=== PATIENT | female | born 1995 | race Caucasian/White ===

== ENCOUNTER 2017-04-01 01:03 | Emergency (ER) | payer BC ==
[~2017-04-01] VITALS: Ht 160 cm; Wt 62.1 kg
[2017-04-01 01:10] VITALS: TEMP 36.8; Ht 160 cm; Wt 62.1 kg
[2017-04-01] MEDS ORDERED: METOCLOPRAMIDE HCL INJ 5 MG/ML 2 ML VIAL IV STA (01:21)
[2017-04-01] MEDS ORDERED: SODIUM CHLORIDE 0.9% 1000ML 2,000 ML IV STA (01:21)
[2017-04-01] MEDS ORDERED: DiphenhydrAMINE HCL 50 MG/ML VIAL IV STA (01:21)
[2017-04-01] MEDS ORDERED: MoRPHine SULFATE 4 MG/ML 1 ML CARP\\VIAL IV STA (01:27)
[2017-04-01 01:46] LABS: MEAN CELL VOLUME 98.7 fL (80-100); MEAN CORPUSCULAR HEMOGLOBIN 32.7 pg (25-34); MEAN CORPUSCULAR HGB CONC 33.1 g/dl (32-36); MEAN PLATELET VOLUME 9.1 fL (7.4-10.4); PLATELET COUNT 367 K/uL (130-400); RED BLOOD COUNT 3.95 M/uL (4.2-5.4); WHITE BLOOD COUNT 14.38 K/uL (4.8-10.8)
[2017-04-01 01:49] VITALS: O2SAT 96
[2017-04-01] MEDS ORDERED: FLUO20CA35 PO (01:54)
[2017-04-01 02:06] LABS: ALT/SGPT 38 U/L (12-78); AST/SGOT 26 U/L (15-37); BLOOD UREA NITROGEN 13 mg/dl (7-18); CALCIUM 9.2 mg/dl (8.5-10.1); CARBON DIOXIDE 26 mmol/L (21-32); CHLORIDE 106 mmol/L (98-107); CREATININE 0.88 mg/dl (0.60-1.20); GLUCOSE 146 mg/dl (70-99); MAGNESIUM 1.9 mg/dl (1.8-2.4); POTASSIUM 3.1 mmol/L (3.5-5.1); SODIUM 141 mmol/L (136-145)
[2017-04-01 02:08] LABS: ALKALINE PHOSPHATASE 43 U/L (45-117)
[2017-04-01 02:09] LABS: BASO % 0.3 %; BASO ABS # 0.04 K/uL (0-0.2); COMPLETE YES; EOS % 0.8 %; IG% 0.1 %; LYMPH % 20.4 %; LYMPH ABS # 2.93 K/uL (1.2-3.4); MONO % 6.3 %; NEUT % 72.1 %
[2017-04-01 02:16] LABS: PREG INTERNAL NEGATIVE QC NEG CLEAR BACKGROUND; PREG INTERNAL POSITIVE QC POS CONTROL LINE
[2017-04-01] MEDS ORDERED: POTASSIUM CHLORIDE 10 MEQ TABCR PO STA (03:50)
[2017-04-01 03:55] LABS: URINE APPEARANCE CLEAR (CLEAR); URINE BILIRUBIN NEG (NEG); URINE COLOR YELLOW; URINE NITRITE NEG (NEG); URINE PH >= 9.0 (4.5-7.5); URINE SPECIFIC GRAVITY 1.017 (1.000-1.030); UROBILINOGEN NEG (NEG); ZZUR CULT IF INDIC CLEAN CATCH NO
[2017-04-01 04:00] LABS: MANUAL MICROSCOPIC REQUIRED? NO; REVIEW REQ? NO
--- NOTE | 2017-04-01 04:10 | EMERGENCY ROOM VISIT NOTE ---
History First contact with patient: 01:19 Chief Complaint: VOMITING Stated Complaint: VOMITING FOR HOUR,IN HOSPTIAL LAST 3 WEEKS History of Present Illness The patient is a 22 year old female who presents to the Emergency Room with complaints of sudden onset of left lower superpubic pain with nausea and vomiting for the past few hours. Patient just finished antibiotics for kidney infection. She states she went to the same ER,[place] [facility], these past 3 weekends for kidney infection. She states this feels different. She has finished the antibiotics. She was never admitted despite the triage note. She was asked this a few times. The boyfriend is verified this. Patient discussed pain as severe, 8 out of 10 to the left lower quadrant area. Nothing makes it better or worse. She just finished her menstrual cycle. No history of ovarian cyst. Patient denies fever, chills, cough, congestion, urinary symptoms, back pain, vaginal itching or discharge. Review of Systems See HPI for pertinent positives & negatives. A total of 10 systems reviewed and were otherwise negative. Past Medical/Surgical History Migraine, anxiety Social History Smoking Status: Never Smoker Smokeless Tobacco Use: No Drug Use: none Occupation Status: [employer] student Current/Historical Medications Scheduled Fluoxetine (Prozac), 20 MG PO DAILY Physical Exam Vital Signs Date Time Temp Pulse Resp B/P (MAP) Pulse Ox O2 Delivery O2 Flow Rate FiO2 04/01/17 03:08 75 16 116/76 96 Room Air 04/01/17 01:53 58 04/01/17 01:49 96 Room Air 04/01/17 01:46 71 18 125/80 97 Room Air 04/01/17 01:10 36.8 90 24 92/52 99 Room Air Physical Exam VITALS: Vitals are noted on the nurse's note and reviewed by myself. Vital signs mildly hypotensive GENERAL: Female vomiting who appears in pain, nondiaphoretic, well-developed well-nourished. SKIN: The skin was without rashes, erythema, edema, or bruising. There is no tenting of the skin. Capillary reflex less than 2 seconds. HEAD: Normocephalic atraumatic. EARS: External auditory canals clear, tympanic membranes pearly trinh without erythema or effusion bilaterally. EYES: Pupils equal round and reactive to light and accommodation. Conjunctivae without injection, sclerae without icterus. Extraocular movements intact. NOSE: Patent, turbinates without inflammation or discharge. MOUTH: Mucous membranes mildly dry. Pharynx without erythema or exudate. Uvula midline. Airway patent. Tongue does not deviate. NECK: Supple without nuchal rigidity. No lymphadenopathy. No thyromegaly. Cervical spine is nontender. No JVD. HEART: Regular rate and rhythm without murmurs gallops or rubs. LUNGS: Clear to auscultation bilaterally without wheezes, rales or rhonchi. No dullness to percussion. No retractions or accessory muscle use. ABDOMEN: Positive bowel sounds x 4. Normal tympanic percussion. Soft, tender to palpation left lower suprapubic area, no CVA tenderness, without masses or organomegaly. Butler sign negative. No guarding or rebound tenderness. MUSCULOSKELETAL: No muscle atrophy, erythema, or edema noted. NEURO: Patient was alert and oriented to person place and time. Normal sensation to light and sharp touch. No focal neurological deficits. Medical Decision & Procedures Laboratory Results 04/01/17 01:30 Red Blood Count 3.95, Mean Corpuscular Volume 98.7, Mean Corpuscular Hemoglobin 32.7, Mean Corpuscular Hemoglobin Concent 33.1, Mean Platelet Volume 9.1, Neutrophils (%) (Auto) 72.1, Lymphocytes (%) (Auto) 20.4, Monocytes (%) (Auto) 6.3, Eosinophils (%) (Auto) 0.8, Basophils (%) (Auto) 0.3, Neutrophils # (Auto) 10.38, Lymphocytes # (Auto) 2.93, Monocytes # (Auto) 0.90, Eosinophils # (Auto) 0.11, Basophils # (Auto) 0.04 04/01/17 01:30 Test 04/01/17 01:30 04/01/17 03:30 White Blood Count 14.38 K/uL (4.8-10.8) Red Blood Count 3.95 M/uL (4.2-5.4) Hemoglobin 12.9 g/dL (12.0-16.0) Hematocrit 39.0 % (37-47) Mean Corpuscular Volume 98.7 fL (80-100) Mean Corpuscular Hemoglobin 32.7 pg (25-34) Mean Corpuscular Hemoglobin Concent 33.1 g/dl (32-36) Platelet Count 367 K/uL (130-400) Mean Platelet Volume 9.1 fL (7.4-10.4) Neutrophils (%) (Auto) 72.1 % Lymphocytes (%) (Auto) 20.4 % Monocytes (%) (Auto) 6.3 % Eosinophils (%) (Auto) 0.8 % Basophils (%) (Auto) 0.3 % Neutrophils # (Auto) 10.38 K/uL (1.4-6.5) Lymphocytes # (Auto) 2.93 K/uL (1.2-3.4) Monocytes # (Auto) 0.90 K/uL (0.11-0.59) Eosinophils # (Auto) 0.11 K/uL (0-0.5) Basophils # (Auto) 0.04 K/uL (0-0.2) RDW Standard Deviation 41.1 fL (36.4-46.3) RDW Coefficient of Variation 11.4 % (11.5-14.5) Immature Granulocyte % (Auto) 0.1 % Immature Granulocyte # (Auto) 0.02 K/uL (0.00-0.02) Anion Gap 9.0 mmol/L (3-11) Est Creatinine Clear Calc Drug Dose 82.2 ml/min Estimated GFR () 107.3 Estimated GFR (Non- 92.6 BUN/Creatinine Ratio 15.0 (10-20) Calcium Level 9.2 mg/dl (8.5-10.1) Magnesium Level 1.9 mg/dl (1.8-2.4) Total Bilirubin 0.4 mg/dl (0.2-1) Direct Bilirubin < 0.1 mg/dl (0-0.2) Aspartate Amino Transf (AST/SGOT) 26 U/L (15-37) Alanine Aminotransferase (ALT/SGPT) 38 U/L (12-78) Alkaline Phosphatase 43 U/L (45-117) Total Protein 7.5 gm/dl (6.4-8.2) Albumin 4.2 gm/dl (3.4-5.0) Lipase 86 U/L (73-393) Human Chorionic Gonadotropin, Qual NEG (NEG) Urine Color YELLOW Urine Appearance CLEAR (CLEAR) Urine pH >= 9.0 (4.5-7.5) Urine Specific [place] 1.017 (1.000-1.030) Urine Protein NEG (NEG) Urine Glucose (UA) NEG (NEG) Urine Ketones TRACE (NEG) Urine Occult Blood NEG (NEG) Urine Nitrite NEG (NEG) Urine Bilirubin NEG (NEG) Urine Urobilinogen NEG (NEG) Urine Leukocyte Esterase NEG (NEG) Medications Administered Medications (Trade) Dose Ordered Sig/Татьяна Route Start Time Stop Time Status Last Admin Dose Admin Sodium Chloride 2,000 ml @ 999 mls/hr Q2H1M STAT IV 04/01/17 01:21 04/01/17 03:21 DC 04/01/17 01:34 999 MLS/HR Metoclopramide HCl (Reglan Inj) 10 mg NOW STAT IV 04/01/17 01:21 04/01/17 01:25 DC 04/01/17 01:34 10 MG Diphenhydramine HCl (Benadryl Inj) 25 mg NOW STAT IV 04/01/17 01:21 04/01/17 01:25 DC 04/01/17 01:34 25 MG Morphine Sulfate (MoRPHine SULFATE INJ) 4 mg NOW STAT IV 04/01/17 01:27 04/01/17 01:28 DC 04/01/17 01:38 4 MG ED Course Prior records/ancillary studies reviewed. Triage Nursing notes reviewed. Additional history obtained from boyfriend The patient's history was concerning for abdominal pain with vomiting writhing in pain slightly hypotensive. Differential diagnosis: Differential diagnosis includes salpingitis, , ectopic , incomplete , septic , ruptured ovarian cyst, ovarian torsion, Mittelschmerz, endometritis, dysmenorrhea, appendicitis, PID, and others. Physical examination findings: As above. ER treatment provided: Morphine, Reglan, Benadryl, IV fluids The secretaries was asked to obtain the records from the other facility for review I did obtain these records and patient was treated for pyelonephritis at her first visit and dehydration at her second visit. No CT imaging was ordered. On reassessment the patient felt better. Diagnostics interpreted by me: FAST exam negative for free fluid per my interpretation FAST exam was done as patient was slightly hypotensive and writhing in pain The labs revealed leukocytosis most likely marginalization from vomiting. Hypokalemia and this is replaced orally. Hyperglycemia most likely stress reaction from vomiting Negative hCG Negative urine Imaging studies: Ultrasound pelvis: Normal flow to ovaries and read by radiology and reviewed by myself Exam and history seem consistent with suprapubic abdominal pain that is now resolved with vomiting. Patient's been here for over 3 hours and symptoms have resolved. She is requesting to leave. Using shared decision making process the patient will follow-up today with health services or here in the ER sooner for abdominal pain or further workup if needed. Patient was neurovascularly and neurologically intact. She is well-appearing. She felt much better after being medicated as above. She is advised to follow-up with health services today or here in the ER sooner for abdominal pain, fevers, vomiting, worsening signs or symptoms or as needed. By the evaluation outlined above emergent etiologies such as torsion, , appendicitis, diverticulitis, PUD, biliary pathology, UTI, pancreatitis, obstruction, mesenteric ischemia, aortic pathology, infections, inflammatory bowel disease, renal colic, as well as others were deemed relatively unlikely. The pt informed about the findings as listed above. All questions were answered and pleased with the treatment. Return instructions were outlined and the patient was discharged in stable condition. Outpatient prescription management: Omer Referral: The patient was referred back to their primary care physician/S for follow-up within 24 hours n 1-2 days for a recheck of the current condition. Case reviewed with my attending Medical Decision As above [place] Drug Monitoring Program Search Results: patient reviewed within database, no issues identified Medication Reconcilliation Current Medication List: was personally reviewed by me Impression Primary Impression: Vomiting Additional Impressions: Abdominal pain Hypokalemia Hyperglycemia Departure Information Dispostion Home / Self-Care Condition GOOD Referrals [facility] (PCP) Patient Instructions My [facility] Additional Instructions DO NOT drive, drink alcohol, operate machinery, or perform dangerous activities today. You were given medications in the ER that can affect your ability to safely function or operate a vehicle. Ibuprofen(Motrin, Advil) may be used for fever or pain. Use 600mg every six hours as needed. Take with food. Avoid using more than 2400mg in a 24 hour period. Do not use 2400mg per day for more than three consecutive days without physician direction. Prolonged inappropriate use can lead to stomach upset or ulcers. (AND/OR) Acetaminophen(Tylenol) may be used for fever or pain. Use 1000mg every six hours as needed. Avoid using more than 3000mg in a 24 hour period. Zofran 4mg: Take one every six hours as needed for nausea. Avoid alcohol, operating machinery or dangerous equipment, working on ladders or roofs, DRIVING , or situations where being under the influence may be dangerous. Rest and drink plenty of fluids as tolerated. Slow sips of water or sports drinks are recommended instead of large amounts all at once. Continue current medications. Once your stomach is settled start with a clear liquid diet (jello, soup broth, etc.) and then advance as tolerated. You should avoid full, heavy meals for about 24 hrs from the time your symptoms resolved. Return to the ER immediately for worsening or persistent abdominal pain, vomiting, fevers, chest pains, difficulty breathing, black or bloody stools, worsening of your condition, or as needed. Follow up with your primary physician/health services in 24 hours for a recheck of your current condition. Problem Qualifiers Primary Impression: Vomiting Vomiting type: unspecified Vomiting Intractability: non-intractable Nausea presence: with nausea Qualified Codes: R11.2 - Nausea with vomiting, unspecified Additional Impressions: Abdominal pain Abdominal location: left lower quadrant Qualified Codes: R10.32 - Left lower quadrant pain
[2017-04-01] MEDS ORDERED: ONDANSETRON HOME PACK 4MG OD TAB PO ONE (04:15)
[2017-04-01 04:22] VITALS: BP 100/52; PULSE 81; O2SAT 95
--- NOTE | 2017-04-01 07:06 | DIAGNOSTIC IMAGING REPORT ---
PELVIC COMPLETE NON OB CLINICAL HISTORY: severe LLQ pain, ? Torsion PAIN. NAUSEA. COMPARISON STUDY: None FINDINGS: The uterus measured 5.9 cm. The endometrial stripe measured 3 mm. The right ovary measured 3.2 cm with normal vascular flow. The left ovary measured 3.5 cm with normal vascular flow. There is no ultrasonographic evidence of ovarian torsion. It should be noted that ovarian torsion can be present with normal Doppler ultrasonographic findings. There was no evidence of pathologic free pelvic fluid. IMPRESSION: Normal study The above report was generated using voice recognition software. It may contain grammatical, syntax or spelling errors. Electronically signed by: Moy Orona M.D. 04/01/2017 7:05 AM Dictated Date/Time: 04/01/2017 7:04 AM
== END 2017-04-01 04:31 | disposition home or self-care (01) ==
LOC: C.EDB 01:05 → C.EDA 04:31
DX: R11.10 Vomiting, unspecified (principal); R10.9 Unspecified abdominal pain; E87.6 Hypokalemia; R73.9 Hyperglycemia, unspecified; F41.9 Anxiety disorder, unspecified; Z79.899 Other long term (current) drug therapy

== ENCOUNTER 2018-02-16 18:13 | Emergency (ER) | payer SELFPAY ==
[~2018-02-16] VITALS: Ht 160 cm; Wt 66.8 kg
[~2018-02-16 18:13] MED LIST: FLUO20CA35 PO; FRCT/ PO
[2018-02-16 18:23] VITALS: TEMP 36.4; Ht 160 cm; Wt 66.8 kg
[2018-02-16] MEDS ORDERED: SODIUM CHLORIDE 0.9% 1000ML 1,000 ML IV STA ×2 (19:11→20:18)
[2018-02-16] MEDS ORDERED: ONDANSETRON INJ 2 MG/ML 2 ML VIAL IV STA (19:11)
[2018-02-16] MEDS ORDERED: KETOROLAC TROMETHAMINE 30 MG/ML VIAL IV STA (19:11)
[2018-02-16] MEDS ORDERED: SODIUM CHLORIDE 0.9% 1000ML 1,000 ML IV ONE (19:11)
--- NOTE | 2018-02-16 19:40 | EMERGENCY ROOM VISIT NOTE ---
History Report prepared by Khai: Sonal Castano Under the Supervision of: Dr. Sanya Golden M.D. First contact with patient: 19:03 Chief Complaint: FLU LIKE SX Stated Complaint: NAUSEA, VOMITING, DIARRHEA, CHILLS/SWEATS History of Present Illness The patient is a 23 year old female who presents to the Emergency Room with complaints of constant flu-like symptoms that started this morning. The patient reports that she woke up this morning feeling nauseous and she states that she has been vomiting persistently all day. She also complains of diarrhea, abdominal pain, a slight headache, and achy back pain. She states that she has not had similar symptoms in the past. The patient denies any urinary symptoms or rash. The patient also denies any recent travel, fall, trauma, and injuries, and she does not think she ate anything unusual. The patient reports she has tried taking medication, including Zofran, to alleviate her pain. The patient notes she has a history of a kidney infection and migraines. She also notes she has anxiety and that she has not been able to take her medication today secondary to vomiting. She reports she currently feels very anxious. Source of History: patient Onset: this morning Position: other (generalized) Quality: other (flu-like) Timing: constant Associated Symptoms: + headache, + nausea, + vomiting, + abdominal pain, + back pain (achy), + diarrhea, No urinary symptoms, No rash Note: additional symptoms: anxiety Review of Systems See HPI for pertinent positives & negatives. A total of 10 systems reviewed and were otherwise negative. Past Medical & Surgical Medical Problems: (1) Anxiety Disorder, Unspecified (2) Migraines (3) Pyelonephritis Surgical Problems: (1) No history of previous surgery Old medical records were reviewed. Nurse's notes were reviewed and I agree with. Family History No pertinent family history Social History Smoking Status: Never Smoker Alcohol Use: occasionally Drug Use: none Marital Status: single Occupation Status: employed, [employer] student Current/Historical Medications Scheduled Fluoxetine (Prozac), 20 MG PO DAILY Ondasetron Odt (Zofran Odt), 4 MG SL Q6H Scheduled PRN Acetamin/Butalbital/Caffeine (Fioricet), 1 TAB PO Q4 PRN for Migraine Allergies Coded Allergies: Cefixime (Unverified Allergy, Unknown, , 12/26/17) Penicillins (Verified Allergy, Unknown, very ill, 04/01/17) Sodium Benzoate (Unverified Allergy, Unknown, , 12/26/17) Physical Exam Vital Signs Date Time Temp Pulse Resp B/P (MAP) Pulse Ox O2 Delivery O2 Flow Rate FiO2 02/16/18 22:20 81 18 106/81 99 02/16/18 20:54 77 18 111/89 100 Room Air 02/16/18 18:23 36.4 75 18 104/83 100 Room Air Physical Exam General: Well developed well nourished non ill-appearing female wearing a mask and in no acute distress, breathing comfortably on room air. Normal speech HEENT: Normal cephalic atraumatic. Pupils are equal round and reactive to light. Extraocular movements are intact. Oropharynx is pink with moist mucous membranes. No swelling of the mouth lips or tongue. Neck: Supple with a midline trachea. No meningeal signs or stiffness, no JVD or bruits. No Stridor. Chest: Clear to auscultation bilaterally. No wheezes or rhonchi. No increased work of breathing. Heart: regular rate and rhythm. Abdomen: Soft nondistended without rebound guarding or rigidity. Minimally tender in epigastric area. Extremities: No cyanosis clubbing or edema. No calf tenderness or assymetry Spine/Back. Non tender to palpation. No CVA tenderness Skin: Good turgor without rashes. Neurologic exam: Cranial nerves two through 12 are intact. Motor and sensation are intact and symmetrical throughout. Medical Decision & Procedures Laboratory Results 02/16/18 19:30 Red Blood Count 4.03, Mean Corpuscular Volume 99.5, Mean Corpuscular Hemoglobin 33.0, Mean Corpuscular Hemoglobin Concent 33.2, Mean Platelet Volume 9.7, Neutrophils (%) (Auto) 84.6, Lymphocytes (%) (Auto) 12.1, Monocytes (%) (Auto) 2.9, Eosinophils (%) (Auto) 0.0, Basophils (%) (Auto) 0.3, Neutrophils # (Auto) 6.77, Lymphocytes # (Auto) 0.97, Monocytes # (Auto) 0.23, Eosinophils # (Auto) 0.00, Basophils # (Auto) 0.02 02/16/18 19:30 Test 02/16/18 19:30 02/16/18 20:50 White Blood Count 8.00 K/uL (4.8-10.8) Red Blood Count 4.03 M/uL (4.2-5.4) Hemoglobin 13.3 g/dL (12.0-16.0) Hematocrit 40.1 % (37-47) Mean Corpuscular Volume 99.5 fL (80-100) Mean Corpuscular Hemoglobin 33.0 pg (25-34) Mean Corpuscular Hemoglobin Concent 33.2 g/dl (32-36) Platelet Count 275 K/uL (130-400) Mean Platelet Volume 9.7 fL (7.4-10.4) Neutrophils (%) (Auto) 84.6 % Lymphocytes (%) (Auto) 12.1 % Monocytes (%) (Auto) 2.9 % Eosinophils (%) (Auto) 0.0 % Basophils (%) (Auto) 0.3 % Neutrophils # (Auto) 6.77 K/uL (1.4-6.5) Lymphocytes # (Auto) 0.97 K/uL (1.2-3.4) Monocytes # (Auto) 0.23 K/uL (0.11-0.59) Eosinophils # (Auto) 0.00 K/uL (0-0.5) Basophils # (Auto) 0.02 K/uL (0-0.2) RDW Standard Deviation 44.5 fL (36.4-46.3) RDW Coefficient of Variation 12.2 % (11.5-14.5) Immature Granulocyte % (Auto) 0.1 % Immature Granulocyte # (Auto) 0.01 K/uL (0.00-0.02) Anion Gap 6.0 mmol/L (3-11) Est Creatinine Clear Calc Drug Dose 128.4 ml/min Estimated GFR () 146.3 Estimated GFR (Non- 126.2 BUN/Creatinine Ratio 14.8 (10-20) Calcium Level 9.2 mg/dl (8.5-10.1) Total Bilirubin 0.5 mg/dl (0.2-1) Direct Bilirubin 0.2 mg/dl (0-0.2) Aspartate Amino Transf (AST/SGOT) 21 U/L (15-37) Alanine Aminotransferase (ALT/SGPT) 25 U/L (12-78) Alkaline Phosphatase 49 U/L (45-117) Total Protein 8.2 gm/dl (6.4-8.2) Albumin 4.5 gm/dl (3.4-5.0) Lipase 53 U/L (73-393) Human Chorionic Gonadotropin, Qual NEG (NEG) Urine Color DK YELLOW Urine Appearance CLEAR (CLEAR) Urine pH >= 9.0 (4.5-7.5) Urine Specific [place] 1.027 (1.000-1.030) Urine Protein NEG (NEG) Urine Glucose (UA) NEG (NEG) Urine Ketones 2+ (NEG) Urine Occult Blood NEG (NEG) Urine Nitrite NEG (NEG) Urine Bilirubin NEG (NEG) Urine Urobilinogen NEG (NEG) Urine Leukocyte Esterase NEG (NEG) Urine WBC (Auto) 1-5 /hpf (0-5) Urine RBC (Auto) 5-10 /hpf (0-4) Urine Hyaline Casts (Auto) 1-5 /lpf (0-5) Urine Epithelial Cells (Auto) >30 /lpf (0-5) Urine Bacteria (Auto) NEG (NEG) Laboratory studies as stated above per my review. Medications Administered Medications (Trade) Dose Ordered Sig/Татьяна Route Start Time Stop Time Status Last Admin Dose Admin Sodium Chloride 1,000 ml @ 999 mls/hr Q1H1M STAT IV 02/16/18 19:11 02/16/18 20:11 DC 02/16/18 19:30 999 MLS/HR Sodium Chloride 1,000 ml @ 200 mls/hr Q5H ONCE IV 02/16/18 19:11 02/16/18 22:34 DC 02/16/18 19:30 200 MLS/HR Ondansetron HCl (Zofran Inj) 4 mg NOW STAT IV 02/16/18 19:11 02/16/18 19:12 DC 02/16/18 19:30 4 MG Ketorolac Tromethamine (Toradol Inj) 30 mg NOW STAT IV 02/16/18 19:11 02/16/18 19:12 DC 02/16/18 19:30 30 MG Sodium Chloride 1,000 ml @ 999 mls/hr Q1H1M STAT IV 02/16/18 20:18 02/16/18 21:18 DC 02/16/18 20:18 999 MLS/HR ED Course 1909: Past medical records reviewed. The patient was evaluated in room B8, and a complete history and physical examination were performed. 1910: Ordered Toradol Inj 30 mg IV, Zofran Inj 4 mg IV, Sodium Chloride 1000 ml @ 200 mls/hr IV, Sodium Chloride 1000 ml @ 999 mls/hr IV. 2017: I reevaluated the patient and she is feeling better. I ordered another liter of fluids.Ordered Sodium Chloride 1000 ml @ 999 mls/hr IV. 2203: Upon reevaluation, the patient is stable. I discussed the results and treatment plan with her. She verbalized agreement of the treatment plan. The patient was discharged home. This patient comes in as described above she has had nausea vomiting diarrhea and body aches. There are no known food exposures or sick contacts. She has not been on antibiotics. She tried a Zofran at home that she had from previous illness but threw it up. Denies . IV access established and blood work was obtained. He was hydrated with IV normal saline. She was given Zofran 4 mg IV and Toradol 30 mg IV. Multiple blood testing was obtained. She was reassessed frequently Medical Decision Differentials include, but are not limited to; viral illness, dehydration, gastroenteritis, pancreatitis, , kidney infection, electrolyte and metabolic abnormality This patient comes in as described above she has had nausea vomiting and diarrhea. Her abdomen is benign and she has minimal epigastric tenderness. No lower abdominal tenderness. IV access established hydrated with IV normal saline. She has nothing to suggest infection. She has no significant electrolyte or metabolic abnormality. She has nothing to suggest acute liver, gallbladder, or pancreas disease. She is not . She received 2 L normal saline IV while she was here. She has received IV Zofran as well as IV Toradol is feeling a lot better. She was drinking sips of fluid. Her abdomen does not suggest peritonitis or appendicitis. She is feeling better and would like to go home. Most likely this is gastroenteritis. She will use Zofran if needed and return if: worsening of symptoms, fever or chills, any new problems or concerns. She is happy the plan and discharged home. Medication Reconcilliation Current Medication List: was personally reviewed by me Blood Pressure Screening Patient's blood pressure: Normal blood pressure Blood pressure disposition: Did not require urgent referral Impression Primary Impression: Gastroenteritis Additional Impression: Dehydration Scribe Attestation The scribe's documentation has been prepared under my direction and personally reviewed by me in its entirety. I confirm that the note above accurately reflects all work, treatment, procedures, and medical decision making performed by me. Departure Information Dispostion Home / Self-Care Prescriptions Ondasetron Odt (ZOFRAN ODT) 4 Mg Tab 4 MG SL Q6H for Nausea, #10 TAB Prov: Sanya Golden M.D. 02/16/18 Referrals No Doctor, Assigned (PCP) Forms HOME CARE DOCUMENTATION FORM, IMPORTANT VISIT INFORMATION Patient Instructions My [facility] Additional Instructions Rest. Drink plenty of fluids. May use Zofran 4 mg every 6 hours if needed for nausea or vomiting Return if: Fever, increasing pain, not tolerating fluids, worsening symptoms, any new problems or concerns Follow-up with your doctor either tomorrow or Tuesday for recheck or return to ER any point if symptoms worsen Problem Qualifiers
[2018-02-16] MEDS ORDERED: FRCT/ PO (19:43)
[2018-02-16 19:57] LABS: BASO % 0.3 %; BASO ABS # 0.02 K/uL (0-0.2); HEMATOCRIT 40.1 % (37-47); HEMOGLOBIN 13.3 g/dL (12.0-16.0); IG# 0.01 K/uL (0.00-0.02); LYMPH % 12.1 %; LYMPH ABS # 0.97 K/uL (1.2-3.4); MEAN CELL VOLUME 99.5 fL (80-100); MEAN CORPUSCULAR HGB CONC 33.2 g/dl (32-36); MEAN PLATELET VOLUME 9.7 fL (7.4-10.4); MONO % 2.9 %; MONO ABS # 0.23 K/uL (0.11-0.59); NEUT % 84.6 %; NEUT ABS # 6.77 K/uL (1.4-6.5); PLATELET COUNT 275 K/uL (130-400); RED CELL DISTRIBUTION WIDTH CV 12.2 % (11.5-14.5); RED CELL DISTRIBUTION WIDTH SD 44.5 fL (36.4-46.3)
[2018-02-16 20:08] LABS: ALBUMIN 4.5 gm/dl (3.4-5.0); CALCIUM 9.2 mg/dl (8.5-10.1); CREATININE 0.62 mg/dl (0.60-1.20); POTASSIUM 3.5 mmol/L (3.5-5.1); TOTAL PROTEIN 8.2 gm/dl (6.4-8.2)
[2018-02-16] MEDS ORDERED: ONDA4TAB10 SL (21:01)
[2018-02-16] MEDS ORDERED: ONDANSETRON HOME PACK 4MG OD TAB PO ONE (22:15)
[2018-02-16 22:20] VITALS: BP 106/81; PULSE 81; O2SAT 99
== END 2018-02-16 22:20 | disposition home or self-care (01) ==
LOC: C.EDB 18:14
DX: K52.9 Noninfective gastroenteritis and colitis, unspecified (principal); E86.0 Dehydration; R51 Headache; M54.9 Dorsalgia, unspecified; F41.9 Anxiety disorder, unspecified; Z79.899 Other long term (current) drug therapy; Z88.0 Allergy status to penicillin; Z88.1 Allergy status to other antibiotic agents; Z91.048 Other nonmedicinal substance allergy status